=== PATIENT | female | born 1970 | race Two or more races ===

== ENCOUNTER 2017-05-15 14:32 | Emergency (ER) | payer BC, MEDICAID ==
[~2017-05-15] VITALS: Ht 160 cm; Wt 90.3 kg
[2017-05-15] MEDS ORDERED: ACETAMINOPHEN 325 MG TAB PO ONE (14:49)
[2017-05-15 15:55] VITALS: BP 153/98
[2017-05-15] MEDS ORDERED: cefTRIAXone SOD 1,000 MG VL IM ONE (16:30)
== END 2017-05-15 16:47 | disposition home or self-care (01) ==
LOC: ER 14:32
DX: J20.9 Acute bronchitis, unspecified (principal); J02.9 Acute pharyngitis, unspecified
CPT/HCPCS: 96372; 99283; J0696